=== PATIENT | male | born 1980 | race Caucasian/White ===

== ENCOUNTER 2020-06-18 19:21 | Emergency (ER) | payer BC ==
--- NOTE | 2020-06-18 19:44 | EDM.PDOC ---
ED HPI GENERAL MEDICAL PROBLEM - General Chief Complaint: Lower Extremity Injury/Pain Stated Complaint: POSSIBLE BROKEN LT FOOT Time Seen by Provider: 06/18/20 19:42 Source of Information: Reports: Patient History Limitations: Reports: No Limitations - History of Present Illness INITIAL COMMENTS - FREE TEXT/NARRATIVE: 40-year-old male fell from a ladder landing on his left heel sustaining an injury. He has significant pain, inability to bear weight and some bruising is developing on the medial aspect of the heel. No other significant injury. Onset: Sudden Duration: Hour(s): (1 hour ago) Location: Reports: Lower Extremity, Left Associated Symptoms: Reports: Other (Slight soreness in the left wrist and thumb) left heel Pain Score (Numeric/FACES): 10 - Related Data Allergies Allergy/AdvReac Type Severity Reaction Status Date / Time bee venom protein (honey bee) Allergy Edema Verified 06/18/20 19:43 gluten Allergy Bleeding Verified 06/18/20 19:43 Sulfa (Sulfonamide Allergy Hives Verified 06/18/20 19:43 Antibiotics) Home Meds: Home Meds NK [No Known Home Meds] 06/18/20 [History] Review of Systems - Review of Systems Review Of Systems: See Below Constitutional: Denies: Fever Respiratory: Denies: Shortness of Breath Cardiovascular: Denies: Chest Pain Skin: Reports: Bruising (Bruising has developed on the medial aspect of the left heel) Neurological: Denies: Headache ED EXAM, GENERAL - Physical Exam Exam: See Below Exam Limited By: No Limitations General Appearance: Alert, No Apparent Distress (Patient is uncomfortable but not distressed) Head: Other (Small bump on the left parietal scalp where the drill hit him as he was falling) Neck: Supple, Non-Tender Respiratory/Chest: No Respiratory Distress, Lungs Clear Cardiovascular: Regular Rate, Rhythm Extremities: Other (Palpation around the left wrist and thumb is minimally tender, no further evaluation necessary. The left heel however is significantly tender, swelling is developing with bruising on the medial aspect of the heel. Achilles tendon is intact and nontender) Neurological: Alert, Oriented Psychiatric: Normal Affect, Normal Mood Skin Exam: Other (Slight bruising is developed on the medial aspect of the left heel) Course - Vital Signs Last Recorded V/S: Last Vital Signs Temp 96.8 F L 06/18/20 19:46 Pulse 111 H 06/18/20 19:46 Resp 18 06/18/20 19:46 BP 148/83 H 06/18/20 19:46 Pulse Ox 98 06/18/20 19:46 - Orders/Labs/Meds Orders: Active Orders 24 hr Category Date Time Status Calcaneous Lt [CR] Stat Exams 06/18/20 19:42 Taken DME for Discharge [COMM] Stat Oth 06/18/20 21:30 Ordered - Re-Assessments/Exams Free Text/Narrative Re-Assessment/Exam: 06/18/20 19:44 Left calcaneus x-ray was ordered. 06/18/20 23:06 The x-ray was negative but the patient was so symptomatic this was followed by a CT scan. This also showed no fracture. A 4 inch Warner wrap was applied around the foot and he was given crutches, I am concerned he may have a plantar fascia rupture or other significant tendon injury so I asked him to recheck with Dr. Raymond at the clinic next week if not improving. Departure - Departure Time of Disposition: 21:40 Disposition: Home, Self-Care 01 Clinical Impression: Sprain of foot, left Qualifiers: Encounter type: initial encounter Qualified Code(s): S93.602A - Unspecified sprain of left foot, initial encounter - Discharge Information Instructions: Foot Sprain Referrals: PCP,None [Primary Care Provider] - Forms: ED Department Discharge Care Plan Goals: Use Warner wrap and elevate foot for comfort, use crutches with ambulation. Increase activity as tolerated and recheck Saturday with Dr. Raymond at the clinic if not improving satisfactorily. Ibuprofen or naproxen will also be helpful. Sepsis Event Note (ED) - Focused Exam Vital Signs: Vital Signs Temp Pulse Resp BP Pulse Ox 06/18/20 19:46 96.8 F L 111 H 18 148/83 H 98 - My Orders Last 24 Hours: My Active Orders 06/18/20 19:42 Calcaneous Lt [CR] Stat 06/18/20 21:30 DME for Discharge [COMM] Stat - Assessment/Plan Last 24 Hours: My Active Orders 06/18/20 19:42 Calcaneous Lt [CR] Stat 06/18/20 21:30 DME for Discharge [COMM] Stat
--- NOTE | 2020-06-18 21:22 | CRLCT ---
TECHNIQUE: Left foot/ankle CT without intravenous contrast. Coronal and sagittal reformats. INDICATION: Fall from height. COMPARISON: Same day radiographs. FINDINGS: No dislocation or acute fracture. Left ankle and foot joint spaces are preserved. Mild hindfoot soft tissue edema. No radiopaque foreign body or soft tissue gas. IMPRESSION: No acute osseous abnormality. Dictated by Yonny Webber MD @ 06/18/2020 9:20:23 PM Please note that all CT scans at this facility use dose modulation, iterative reconstruction, and/or weight-based dosing when appropriate to reduce radiation dose to as low as reasonably achievable. Dictated by: Yonny Webber MD @ 06/18/2020 21:20:36 (Electronically Signed)
--- NOTE | 2020-06-20 08:53 | CR ---
Calcaneous Lt CLINICAL HISTORY: Pain fall COMPARISON: None FINDINGS: Bone alignment is anatomic. Bone mineralization is adequate. No acute fracture identified. Surrounding soft tissues are intact. IMPRESSION: No acute process.
== END 2020-06-18 21:43 | disposition home or self-care (01) ==
LOC: JP.ED 19:21
DX: S93.602A Unspecified sprain of left foot, initial encounter (principal); Z91.030 Bee allergy status; Z91.018 Allergy to other foods; Z88.2 Allergy status to sulfonamides; W11.XXXA Fall on and from ladder, initial encounter
CPT/HCPCS: 73650-26-LT; 73650-LT; 73700-LT; 76377; 99284-25